=== PATIENT | male | born 1970 | race Caucasian/White ===

== ENCOUNTER 2016-12-20 09:12 | Emergency (ER) | payer MEDICAID ==
[2016-12-20 10:43] LABS: BASOPHIL % 0.4 % (0-2); PLATELET COUNT 269 x10^3mcL (130-400)
[2016-12-20 10:56] LABS: ALBUMIN 3.4 g/dL (3.4-5.0); ALKALINE PHOSPHATASE 83 U/L (46-116); ALT/SGPT 24 U/L (16-63); AMYLASE 50 U/L (25-115); AST/SGOT 14 U/L (15-37); BILIRUBIN TOTAL 0.4 mg/dL (0.20-1.00); CALCIUM 8.9 mg/dL (8.5-10.1); CARBON DIOXIDE 30.3 mmol/L (21-32); CHLORIDE SERUM 105 mmol/L (98-107); CREATININE SERUM 0.9 mg/dL (0.7-1.3); GFR1 > 60 mL/min; GLUCOSE SERUM 97 mg/dL (74-106); LIPASE 129 IU/L (73-393); SODIUM SERUM 141 mmol/L (136-145)
[2016-12-20 11:23] LABS: UA SPECIFIC GRAVITY 1.015 (1.005-1.035); microscopic required? YES; urine erythrocyte TRACE (NEGATIVE)
[2016-12-20 13:01] VITALS: BP 158/92
== END 2016-12-20 13:01 | disposition home or self-care (01) ==
LOC: ED 09:12
PROVIDERS: Emergency Medicine
DX: K57.92 Diverticulitis of intestine, part unspecified, without perforation or abscess without bleeding (principal); H11.001 Unspecified pterygium of right eye
CPT/HCPCS: 83880; J3010; J7030; Q9967

== ENCOUNTER 2017-03-28 13:04 | Emergency (ER) | payer SELFPAY ==
[2017-03-28 13:13] VITALS: BP 103/80
== END 2017-03-28 14:45 | disposition home or self-care (01) ==
LOC: ED 13:04
DX: K57.92 Diverticulitis of intestine, part unspecified, without perforation or abscess without bleeding (principal)